=== PATIENT | female | born 1975 | race Caucasian/White ===

== ENCOUNTER 2021-08-06 07:06 | Day surgery (SDC) | payer OTHER ==
[2021-07-29 11:21] LABS: BASOPHILS # (AUTO) 0.1 X10'3 (0-0.2); BASOPHILS % (AUTO) 0.9 % (0-1); EOSINOPHILS # (AUTO) 0.1 X10'3 (0-0.9); EOSINOPHILS % (AUTO) 1.9 % (0-6); LYMPHOCYTES # (AUTO) 2.2 X10'3 (1.1-4.8); LYMPHOCYTES % (AUTO) 31.9 % (21-51); MEAN CORPUSCULAR HEMOGLOBIN 30.5 PG (27.0-31.0); MEAN CORPUSCULAR VOLUME 89.7 FL (78-98); MEAN PLATELET VOLUME 9.4 FL (7.4-10.4); MONOCYTES # (AUTO) 0.5 X10'3 (0-0.9); MONOCYTES % (AUTO) 6.9 % (2-12); NEUTROPHILS # (AUTO) 4.1 X10'3 (1.8-7.7); NEUTROPHILS % (AUTO) 58.4 % (42-75); PRE OP HEMATOCRIT 40.2 % (35.0-45.0); PRE OP HEMOGLOBIN 13.7 g/dL (12.0-16.0); PRE OP PLATELET COUNT 226 X10'3 (140-440); RED BLOOD COUNT 4.48 X10'6 (4.20-5.60); RED CELL DISTRIBUTION WIDTH 13.5 % (11.5-14.5)
[2021-07-29 11:22] LABS: HCG SERUM QL NEGATIVE
[2021-07-29 11:30] LABS: ALKALINE PHOSPHATASE 106 IU/L (46-116); BLOOD UREA NITROGEN 10 MG/DL (7-18); BUN/CREATININE RATIO 13.2 (6.6-38.0); CALCIUM 9.1 MG/DL (8.5-10.1); CHLORIDE 106 MMOL/L (99-107); CREATININE 0.76 MG/DL (0.40-0.90); PRE OP ALT 29 U/L (30-65); PRE OP ANION GAP 9 (8-16); PRE OP AST 12 U/L (10-37); PRE OP BILIRUB, TOTAL 0.5 MG/DL (0.0-1.0); PRE OP GLUCOSE 124 MG/DL (70-104); PRE OP POTASSIUM 3.8 MMOL/L (3.4-5.1); PRE OP SODIUM 142 MMOL/L (135-145); TOTAL PROTEIN 7.8 G/DL (6.4-8.2); eGFR 83 ML/MIN
[2021-07-29 11:34] LABS: ALBUMIN 3.8 G/DL (3.4-5.0)
[~2021-08-06] VITALS: Ht 170.2 cm; Wt 123.0 kg
[~2021-08-06 07:06] MED LIST: SUMA100T16 PO; VANCOMYCIN INJ 1000 MG in NORMAL SALINE 250ml IV.SOLN IV ONE; ceFAZolin 2gm in dextrose, iso 50 ML IV ONE; ceFAZolin/D5W- 1GM premix 50 ML IV ONE; famotidine 20mg tablet PO ONE; ringers solution, lacted 1,000 ML IV SCH
[2021-08-06] MEDS ORDERED: ringers solution, lacted 1,000 ML IV SCH (07:55)
[2021-08-06] MEDS ORDERED: morphine 2 MG/ML inj. syringe IV PRN (07:55)
[2021-08-06] MEDS ORDERED: meperidine/PF 25mg/ml syringe IV PRN ×3 (07:55)
[2021-08-06] MEDS ORDERED: ondansetron/PF 4mg/2ml inj IV PRN (07:55)
[2021-08-06] MEDS ORDERED: morphine 4 MG/ML inj SYRINge IV PRN (07:55)
[2021-08-06] MEDS ORDERED: proCHLORperazine 10 MG/2 ml inj IV PRN (07:55)
[2021-08-06 08:15] VITALS: BP 133/81
[2021-08-06 08:30] VITALS: BP 133/81
[2021-08-06] MEDS ORDERED: LIDOcaine 1% 30ml preserv. free vial ONE (08:40)
[2021-08-06] MEDS ORDERED: methylPREDNISolone sod succ 125mg/2ml vial ONE (08:53)
[2021-08-06] MEDS ORDERED: BUPIVAcaine 0.5% inj/PF 30 ML ONE (08:53)
[2021-08-06] MEDS ORDERED: ketorolac trometh. 30mg/ml inj. ONE (09:05)
[2021-08-06] MEDS ORDERED: MIDAZolam 1 MG/ML 5ML VIAL ONE (09:05)
[2021-08-06] MEDS ORDERED: fentaNYL/PF 50MCG/1 ML 2ML syringe ONE (09:05)
[2021-08-06] MEDS ORDERED: BUPIVAcaine 0.5% inj/PF 30 ml vial IJ ONE (09:32)
[2021-08-06 10:00] VITALS: BP 154/96
--- NOTE | 2021-08-06 10:00 | NUR ---
Received from OR via [facility] , accompanied by Anesthesiologist NIGHAT and report given by Anesthesiolgist. PATIENT WITH + CAP REFILL TO FINGERS. SPLINT TO RIGHT UE. PATIENT DENIES PAIN. Addendum: 08/06/21 at 1011 by Avery Peres RN, RN Amended: Links added.
[2021-08-06 10:10] VITALS: BP 143/96
[2021-08-06 10:20] VITALS: BP 132/86
--- NOTE | 2021-08-06 10:30 | NUR ---
PATIENT GIVEN ALL DC INSTRUCTIONS. VSS. DENIES PAIN RIGHT UE IS CDI. DRESSED AND SPOUSE PICKED HER UP. OUT VIA WHEELCHAIR TO PERSONAL VEHICLE WHERE SHE WAS TAKEN HOME. Addendum: 08/06/21 at 1037 by Avery ePres RN, RN Amended: Links added.
== END 2021-08-06 10:30 | disposition home or self-care (01) ==
LOC: PAS 07:06
PROVIDERS: ATTEND Orthopaedic Surgery
DX: G56.01 Carpal tunnel syndrome, right upper limb (principal); G56.21 Lesion of ulnar nerve, right upper limb; E66.01 Morbid (severe) obesity due to excess calories; Z68.41 Body mass index [BMI] 40.0-44.9, adult; Z20.822 Contact with and (suspected) exposure to COVID-19; Z79.899 Other long term (current) drug therapy; Z72.89 Other problems related to lifestyle; Z98.84 Bariatric surgery status
CPT/HCPCS: 36415; 64719; 64721; 80053; 82948; 84703; 85025; J0690; J1885; J2001; J2250; J2930; J3010; J3370; U0003; U0005; Z7506; Z7512; A4215; A4618; A6455; A7000; J7120